=== PATIENT | female | born 1990 | race Caucasian/White ===

== ENCOUNTER 2020-09-18 11:15 | Outpatient (CLI) | payer MEDICAID ==
[2020-09-18 16:41] LABS: MUDS CUTOFF CONCENTRATIONS CUTOFF CONC BELOW:
[2020-09-18 16:48] LABS: BILIRUBIN,URINE NEGATIVE (NEGATIVE); GLUCOSE, URINE (UA) NEGATIVE (NEGATIVE); KETONES,URINE (UA) NEGATIVE (NEGATIVE); LEUKOCYTE ESTERASE, URINE NEGATIVE (NEGATIVE); NITRITE,URINE NEGATIVE (NEGATIVE); OCCULT BLOOD,URINE NEGATIVE (NEGATIVE); PROTEIN,URINE NEGATIVE (NEGATIVE); UROBILINOGEN,URINE 0.2 (NORMAL) E.U./dL (NORMAL)
[2020-09-18 16:49] LABS: CLARITY,URINE CLEAR (CLEAR)
[2020-09-18 17:10] LABS: THC CANNABINOID SCREEN, URINE NEGATIVE (NEGATIVE)
[2020-09-18 17:11] LABS: AMPHETAMINE SCREEN,URINE NEGATIVE (NEGATIVE); BARBITURATE SCREEN,UR NEGATIVE (NEGATIVE); BENZODIAZEPINES SCREEN, URINE NEGATIVE (NEGATIVE); COCAINE SCREEN URINE NEGATIVE (NEGATIVE); METHADONE SCREEN, URINE NEGATIVE (NEGATIVE); METHAMPHETAMINES SCREEN, URINE NEGATIVE (NEGATIVE); OPIATE SCREEN, URINE NEGATIVE (NEGATIVE); OXYCODONE SCREEN, URINE NEGATIVE (NEGATIVE); PROPOXYPHENE SCREEN, URINE NEGATIVE (NEGATIVE); TRICYCLIC ANTIDEPRESSANT,URINE NEGATIVE (NEGATIVE)
[2020-09-18 17:20] LABS: BACTERIA,URINE Rare /HPF (None Seen); RBC,URINE None Seen /HPF (0-5); SQUAMOUS EPITHELIAL CELL,UR RARE Squamous (<= Few); WBC,URINE 0-3 /HPF (0-5)
== END 2020-09-18 23:59 | disposition home or self-care (01) ==
LOC: LAB.R 11:15
PROVIDERS: ATTEND Advanced Practice Midwife
DX: Z32.01 Encounter for pregnancy test, result positive (principal)
CPT/HCPCS: 80306; 81001; 87086

== ENCOUNTER 2020-10-02 13:41 | Outpatient (CLI) | payer MEDICAID ==
--- NOTE | 2020-10-02 18:21 | Ultrasound Report ---
PROCEDURE: OB First Trimester INDICATIONS: positive test OUTSIDE/PRIOR DATING DATA: Last menstrual period (LMP): 08/04/2020. LMP-based estimated date of delivery (DICK): 05/11/2021. First dating scan (date and location): 09/24/2020. Estimated date of delivery (DICK) from first dating scan: 05/08/21. TECHNIQUE: Real-time scanning was performed of the fetus and maternal pelvic organs, with image documentation. COMPARISON: None FINDINGS: Embryo: Single live intrauterine is identified with crown-rump length measuring 2.2 cm cor responding to 8 weeks 6 days. heart tones are identified at 175 beats per minutes. Measurement variability in dating: +/- 4 weeks by LMP, +/- 7 days by mean sac diameter (use before 6 weeks gestation if crown-rump length not able to be measured), +/- 5 days by crown-rump length (6-12 weeks gestation). Maternal organs: Ovaries demonstrate a right corpus luteal cyst measuring 2.2 x 1.3 x 2.0 cm.. IMPRESSION: Single live intrauterine measuring 8 weeks 6 days. Right corpus luteal cyst. Reviewed by: Charlotte Venegas MD on 10/02/2020 5:20 PM [facility]ONNIE Approved by: Charlotte Venegas MD on 10/02/2020 5:20 PM VONNIE Station ID: [id number]
== END 2020-10-02 13:42 | disposition home or self-care (01) ==
LOC: DI 13:41
PROVIDERS: ATTEND Advanced Practice Midwife
DX: O34.81 Maternal care for other abnormalities of pelvic organs, first trimester (principal); N83.11 Corpus luteum cyst of right ovary; Z3A.08 8 weeks gestation of pregnancy; Z32.01 Encounter for pregnancy test, result positive
CPT/HCPCS: 36415; 85025; 86592; 86762; 86787; 86803; 86850; 86900; 86901; 87340; 87389

== ENCOUNTER 2020-10-02 14:33 | Outpatient (CLI) | payer MEDICAID ==
[2020-10-02 14:55] LABS: BASOPHILS % (AUTO) 0.6 %; EOSINOPHILS # (AUTO) 0.1 10^3/uL (0.0-0.7); EOSINOPHILS % (AUTO) 0.9 %; HCT - HEMATOCRIT 38.9 % (37.0-47.0); HGB - HEMOGLOBIN 13.1 g/dL (12.0-16.0); LYMPHOCYTES # (AUTO) 1.9 10^3/uL (1.5-3.5); LYMPHOCYTES % (AUTO) 27.4 %; MEAN CORPUSCULAR HEMOGLOBIN 30.6 pg (27.0-31.0); MEAN CORPUSCULAR HGB CONC 33.7 g/dL (32.0-36.0); MEAN CORPUSCULAR VOLUME 90.9 fL (81.0-99.0); MEAN PLATELET VOLUME 10.5 fL (7.9-10.8); MONOCYTES # (AUTO) 0.6 10^3/uL (0.0-1.0); MONOCYTES % (AUTO) 8.6 %; NEUTROPHILS # (AUTO) 4.3 10^3/uL (1.5-6.6); NEUTROPHILS % (AUTO) 62.2 %; PLT - PLATELET COUNT 247 10^3/uL (130-450); RED BLOOD COUNT 4.28 10^6/uL (4.20-5.40); RED CELL DISTRIBUTION WIDTH 12.5 % (12.0-15.0); WHITE BLOOD COUNT 6.8 x10^3/uL (4.8-10.8)
[2020-10-03 12:06] LABS: HEPATITIS B SURFACE ANTIGEN NON-REACTIVE (NON-REACTIVE)
[2020-10-03 12:20] LABS: HEPATITIS C ANTIBODY NON-REACTIVE (NON-REACTIVE)
[2020-10-03 14:56] LABS: HIV AG/AB 4TH GEN NON-REACTIVE (NON-REACTIVE)
== END 2020-10-02 14:34 | disposition home or self-care (01) ==
LOC: LAB 14:33
PROVIDERS: ATTEND Advanced Practice Midwife
DX: Z32.01 Encounter for pregnancy test, result positive (principal)
CPT/HCPCS: 36415; 85025; 86592; 86762; 86787; 86803; 86850; 86900; 86901; 87340; 87389

== ENCOUNTER 2020-12-25 13:35 | Outpatient (CLI) | payer MEDICAID ==
--- NOTE | 2020-12-25 16:02 | Ultrasound Report ---
PROCEDURE: OB Detailed Eval INDICATIONS: SUPERVISION OF NORMAL OUTSIDE/PRIOR DATING DATA: Last menstrual period (LMP): 08/04/2020. LMP-based estimated date of delivery (DICK): 05/11/2021. First dating scan (date and location): 10/02/2020. Estimated date of delivery (DICK) from first dating scan: 05/08/2021. The below data below was generated using the above DICK of 05/08/2021 TECHNIQUE: Real-time scanning was performed of the fetus, with image documentation and biometric measurements. Endovaginal scanning: Not needed COMPARISON: 10/02/2020 FINDINGS: General: A single living intrauterine gestation is present. Presentation: Variable Placenta: Placental position is posterior, without previa. Amniotic fluid index: 12.4 cm, normal for gestational age. heart rate: 150 beats per minute. Maternal cervical canal: 4.4 cm long; normal length is 2.5 cm or more. biometrics: Biparietal diameter: 4.9 cm, 20 weeks 6 days Head circumference: 18.2 cm, 20 weeks 4 days Abdominal circumference: 15.6 cm, 21 weeks 0 days Femur length: 3.4 cm, 20 weeks 4 days Estimated gestational age from initial scan: 20 weeks 6 days. Composite gestational age from present scan: 20 weeks 5 days Estimated weight and percentile: 3 79 g, 42 percentile Measurement variability in biometric dating: +/- 10 days from 12-20 weeks gestation, +/- 2 weeks from 20-30 weeks gestation, +/- 3 weeks at 30 weeks gestation or later. Anatomic survey: Neuro: Ventricles are normal at less than 10 mm. Cisterna magna is normal at 3-11 mm. Cerebellum i s normal in size and morphology. Nuchal skin fold: Normal at less than 6 mm between 14 and 20 weeks gestational age. Face: Nose and lips, facial profile are normal. Spine: No evidence for spina bifida. Heart: 4-chambered heart is present, with normal ventricular outflow tracts. Diaphragm: Diaphragm is intact. Stomach: Left-sided stomach is present. Kidneys: No hydronephrosis. Normal is less than 5 mm in 2nd trimester, less than 7 mm in 3rd trimester. Cord: 3 vessel cord has orthotopic insertion. Bladder: Normal in size. Extremities: All 4 extremities are visualized. IMPRESSION: Appropriate interval growth, no anomaly seen. The delivery date is projected to be centered on 05/08/2021. Reviewed by: Giovany Massey MD on 12/25/2020 4:00 PM PDT Approved by: Giovany Massey MD on 12/25/2020 4:00 PM PDT Station ID: [id number]
== END 2020-12-25 13:36 | disposition home or self-care (01) ==
LOC: DI 13:35
PROVIDERS: ATTEND Nurse Practitioner Obstetrics & Gynecology
DX: Z34.00 Encounter for supervision of normal first pregnancy, unspecified trimester (principal); Z36.8A Encounter for antenatal screening for other genetic defects
CPT/HCPCS: 36415; 81511

== ENCOUNTER 2020-12-25 15:19 | Outpatient (CLI) | payer MEDICAID ==
[2020-12-26 14:56] LABS: AFP MOM 1.04; AGE RISK DOWN SYNDROME 1 IN 717; CALC'D GESTATIONAL AGE 20.4 weeks; CIGARETTE SMOKER? NOT GIVEN; DONOR AGE: EGG RETRIEVAL NOT GIVEN; DONOR EGG NO; ESTRIOL MOM 0.82; HCG MOM 0.74; HX OF NEURAL TUBE DEFECTS NO; INHIBIN A MOM 0.74; INSULIN DEPEND DIABETIC NO; MATERNAL WEIGHT 152 lbs; MSS DOWN SYNDROME RISK <1 IN 5000; MSS3 TRISOMY 18 RISK <1 IN 5000; NUMBER OF FETUSES 1; PREV PREGNANCY DOWN SYND NO; RISK FOR ONTD 1 IN 3103
== END 2020-12-25 15:20 | disposition home or self-care (01) ==
LOC: LAB 15:19
PROVIDERS: ATTEND Nurse Practitioner Obstetrics & Gynecology
DX: Z36.8A Encounter for antenatal screening for other genetic defects (principal)
CPT/HCPCS: 36415; 81511

== ENCOUNTER 2021-05-07 11:46 | Inpatient (IN) | payer MEDICAID ==
[2021-05-07] MEDS ORDERED: miSOPROStoL 200 MCG TABLET BC PRN (12:03)
[2021-05-07] MEDS ORDERED: TRANEXAMIC ACID IN NACL 1,000 MG/100 ML BAG IV PRN (12:03)
[2021-05-07] MEDS ORDERED: OXYTOCIN 10 UNIT/ML VIAL IM PRN (12:03)
[2021-05-07] MEDS ORDERED: CARBOPROST TROMETHAMINE 250 MCG/ML AMP IM PRN (12:03)
[2021-05-07] MEDS ORDERED: SODIUM CHLORIDE FLUSH 0.9% 10 ML SYRINGE IVP PRN (12:03)
[2021-05-07] MEDS ORDERED: LIDOCAINE-MPF 1% 30 ML VIAL ID PRN (12:03)
[2021-05-07] MEDS ORDERED: METHYLERGONOVINE 0.2 MG/ML VIAL IM PRN (12:03)
--- NOTE | 2021-05-07 12:04 | HISTORY & PHYSICAL EXAMINATION ---
History and Physical - History and Physical HPI: Patient is a 31-year-old G1, P0 at 39 weeks 3 days gestation who was managed by Jody Corona at the [facility]. She presented in labor and progressed to complete. She pushed for approximately 4 hours before we are asked to accept her as her contractions are petering out, patient was tired, and is not having adequate pain control. Good movement. No AVELAR/BV or RUQP. No vaginal bleeding. Denies nausea and vomiting. Denies urinary urgency or dysuria. All other symptoms reviewed and were negative except per HPI. PMH Anxiety PSH Internasal surgery OB History SH Denies tobacco, alcohol, drugs Family History Mother: Ovarian cancer, diabetes, arthritis Father: Alcoholism Maternal grandmother: Ovarian cancer Maternal grandfather: Coronary artery disease, CVA, Alzheimer's Paternal grandmother: Lung cancer Allergies No known drug allergies Medications vitamins Physical exam: Temp Pulse Resp BP 98.1 F 78 18 123/65 General: Alert, oriented, actively laboring Head: Normal cephalic atraumatic Eyes: PERRLA, extraocular motions intact. Respiratory: Normal rate of respiration. No accessory muscle use, normal respiratory effort. Cardiovascular: Regular rate and rhythm Abdomen: Gravid, nontender, nondistended Extremities: Normal range of motion Neuro: Oriented x3. Normal movements Psych: Appropriate mood and affect. Normal judgment and insight SVE: 10/100/+1 FHT: 120 beats minute baseline, moderate variability, accelerations present, no decelerations. [place]: 2 to 3 minutes Plan 31-year-old G1, P0 at 39 weeks 3 days gestation in active labor with prolonged second stage. 1. Term labor -Will admit for prolonged second stage. Will get adequate pain control, assess for oxytocin, and attempted vacuum-assisted vaginal delivery. Patient was counseled on the risks and benefits of vacuum-assisted vaginal delivery versus section. Discussed there is a likelihood that we may end up with section anyway, but once patient has good pain control, will attempt. 2. Prolonged second stage of labor 3. Anxiety
[2021-05-07 12:34] LABS: BASOPHILS # (AUTO) 0.1 10^3/uL (0.0-0.1); BASOPHILS % (AUTO) 0.3 %; EOSINOPHILS % (AUTO) 0.1 %; HCT - HEMATOCRIT 33.3 % (37.0-47.0); HGB - HEMOGLOBIN 11.6 g/dL (12.0-16.0); LYMPHOCYTES # (AUTO) 1.2 10^3/uL (1.5-3.5); LYMPHOCYTES % (AUTO) 5.1 %; MEAN CORPUSCULAR HEMOGLOBIN 30.4 pg (27.0-31.0); MEAN CORPUSCULAR HGB CONC 34.8 g/dL (32.0-36.0); MEAN CORPUSCULAR VOLUME 87.2 fL (81.0-99.0); MEAN PLATELET VOLUME 11.1 fL (7.9-10.8); MONOCYTES # (AUTO) 1.1 10^3/uL (0.0-1.0); MONOCYTES % (AUTO) 4.7 %; NEUTROPHILS % (AUTO) 88.8 %; PLT - PLATELET COUNT 239 10^3/uL (130-450); RED BLOOD COUNT 3.82 10^6/uL (4.20-5.40); RED CELL DISTRIBUTION WIDTH 13.3 % (12.0-15.0); WHITE BLOOD COUNT 23.6 x10^3/uL (4.8-10.8)
[2021-05-07 12:37] LABS: SLIDE REVIEW? Indicated
[2021-05-07] MEDS ORDERED: LACTATED RINGERS 1,000 ML IV SCH (13:00)
[2021-05-07] MEDS ORDERED: ROPIVACAINE 0.2% 200 MG/100 ML BAG EP ONE (13:11)
[2021-05-07] MEDS ORDERED: fentaNYL 100 MCG/2 ML VIAL ONE (13:11)
[2021-05-07] MEDS ORDERED: BUPIVACAINE 0.25% PF 10 ML VIAL ONE (13:11)
--- NOTE | 2021-05-07 13:31 | ANESTHESIA ---
Pre-Anesthesia VS, & Labs - Diagnosis active labor - Procedure labor epidural - Is Patient ?: Yes - Lab Results Current Lab Results: Laboratory Tests 05/07/21 12:23: Blood Type O POSITIVE, Antibody Screen NEGATIVE 05/07/21 12:23: WBC 23.6 H, RBC 3.82 L, Hgb 11.6 L, Hct 33.3 L, MCV 87.2, MCH 30.4, MCHC 34.8, RDW 13.3, Plt Count 239, MPV 11.1 H, Manual Slide Review Indicated Lab results reviewed: Yes Fish Bones: 05/07/21 12:23 Home Medications and Allergies Active Medications Carboprost Tromethamine (Carboprost Tromethamine 250 Mcg/Ml Amp) 250 mcg IM Q15M PRN PRN Reason: Step 4: Hemorrhage protocol Stop: 05/12/21 12:03 Oxytocin/Sodium Chloride (Pitocin/Sodium Chloride) 500 mls @ 999 mls/hr IV PRN PRN; Protocol PRN Reason: POST- HEMORR PREVENTION Stop: 05/12/21 12:03 Tranexamic Acid (Tranexamic 1,000 Mg/100ml-Nacl) 1,000 mg in 100 mls @ 600 mls/hr IV .ONCE PRN PRN Reason: EBL >1200mL and within 3hr Stop: 05/12/21 12:03 Lactated Ringer's (Lr) 1,000 mls @ 150 mls/hr IV .Q6H40M TIM Lidocaine HCl (Lidocaine-Mpf 1% 30 Ml Vial) 30 ml ID .ONCE PRN PRN Reason: PERINEAL REPAIR Stop: 05/12/21 12:03 Methylergonovine Maleate (Methylergonovine 0.2 Mg/Ml Vial) 0.2 mg IM .ONCE PRN PRN Reason: Step 2: Hemorrhage protocol Stop: 05/12/21 12:03 Misoprostol (Misoprostol 200 Mcg Tablet) 800 mcg BC .ONCE PRN PRN Reason: Step 3: Hemorrhage protocol Stop: 05/12/21 12:03 Oxytocin (Oxytocin 10 Unit/Ml Vial) 10 unit IM .ONCE PRN PRN Reason: Step one: If no IV access Stop: 05/12/21 12:03 Sodium Chloride (Sodium Chloride Flush 0.9% 10 Ml Syringe) 10 ml IVP PRN PRN PRN Reason: NEEDED PER PROVIDER ORDERS Sodium Chloride (Sodium Chloride Flush 0.9% 10 Ml Syringe) 10 ml IVP 0100,0900,1700 TIM Anes History & Medical History - Anesthetic History Anesthesia Complications: reports: No previous complications Family history of Anesthesia Complications: Denies Family history of Malignant Hyperthermia: Denies - Medical History Cardiovascular: reports: None Pulmonary: reports: None Gastrointestinal: reports: None Urinary: reports: None Exam General: Alert, Oriented x3, Cooperative, No acute distress Dental: WNL Mouth Openin Fingerbreadth Neck Mobility: Normal Mallampati classification: II Respiratory: Lungs clear, Normal breath sounds, No respiratory distress, No accessory muscle use Cardiovascular: Regular rate, Normal S1, Normal S2, No murmurs Plan Anesthesia Type: Epidural Consent for Procedure(s) Verified and Reviewed: Yes Code Status: Attempt Resuscitation ASA classification: 2-Mild systemic disease Is this case an emergency?: No
[2021-05-07] MEDS ORDERED: NALOXONE 0.4 MG/ML VIAL IVP PRN (13:32)
[2021-05-07] MEDS ORDERED: ONDANSETRON 4 MG/2 ML VIAL IVP PRN (13:32)
[2021-05-07] MEDS ORDERED: ePHEDrine 50 MG/ML VIAL IVP PRN (13:32)
[2021-05-07] MEDS ORDERED: NALBUPHINE 10 MG/ML AMP IVP PRN (13:32)
[2021-05-07] MEDS ORDERED: ROPIVACAINE 0.2% 200 MG/100 ML BAG EP PRN (13:32)
[2021-05-07] MEDS ORDERED: diphenhydrAMINE INJ 50 MG/ML VIAL IVP PRN (13:32)
[2021-05-07] MEDS ORDERED: METOCLOPRAMIDE 10 MG/2 ML VIAL IVP PRN (13:32)
[2021-05-07 14:06] LABS: PLATELET ESTIMATE, MANUAL NORMAL (130-450,000) (NORMAL); PLATELET MORPHOLOGY NORMAL APPEARANCE (NORMAL); RBC MORPHOLOGY (MULTIPLE) NORMAL APPEARANCE (NORMAL)
[2021-05-07 14:07] LABS: DIFFERENTIAL COMMENT MANUAL=AUTO DIFF
[2021-05-07] MEDS: OXYTOCIN/SODIUM CHLORIDE 500 ML IV PRN ×2 (15:57→16:35)
[2021-05-07] MEDS ORDERED: SIMETHICONE CHEW 80 MG TABLET PO PRN (16:06)
--- NOTE | 2021-05-07 16:10 | DELIVERY NOTE ---
Delivery Note - Labor Labor: positive: Spontaneous - Delivery Method Delivery Method: positive: Vacuum assist - Presentation Presentation: positive: FRANCESCO - right occiput anterior - Nuchal Cord Nuchal Cord: positive: None - Anesthetic Anesthetic Type: - Amniotic Fluid Description Amniotic Fluid Description: positive: Clear - Vacuum Use Indication for Vacuum Use: positive: Prolonged 2nd stage Type of Vacuum Cup: positive: Cup: Rigid Vacuum Extraction: positive: Successful Number of pop-offs: 0 - Episiotomy Type Episiotomy Type: positive: None - Laceration Laceration: positive: 1st degree (Hemostatic with pressure), Labial (Hemostatic with pressure.) - Delivery Outcome Delivery Outcome: positive: Livebirth - : positive: Placed in direct skin contact with mother, Suctioned, [place] used [place] sex: positive: Male - Cord Cord: positive: 3 vessels - Placenta Placenta: positive: Intact - Estimated Blood Loss Estimated Blood Loss (in cc): 400 - Post Delivery Events Post Delivery Events: positive: Shoulder dystocia (45 second shoulder dystocia with left shoulder anterior. Resolved with Bryant position.) - Delivery Comments (Free Text/Narrative) Delivery Comments (Free Text/Narrative): Preoperative Diagnoses 31-year-old 39 weeks gestation Spontaneous term labor Prolonged second stage Postoperative Diagnoses Same Status post vacuum-assisted vaginal delivery Delivery Summary: Patient presented as a transfer from the [facility] due to prolonged second stage. She presented to [facility] and received an epidural for pain control. Once pain is under control, mother felt she had increased energy and attempted pushing spontaneously for approximately 1 hour. At that time, without , we discussed vacuum-assisted vaginal delivery Patient was placed in the dorsal lithotomy position in the bed was broken down. The bladder was again drained. After confirming FRANCESCO position and +2 station, a Kiwi suction device was placed at the flexion point, approximately 3 cm from the posterior fontanelle. With several contractions, the device suction was initiated and gentle traction was performed to assist maternal pushing efforts. After the bony skull was out of the introitus, the vaccuum was removed. With several more pushes, the head was delivered, but the anterior, left, shoulder did not immediately deliver. After approximately 45 seconds of gentle downward traction's and subsequent Bryant positioning, the anterior should delivered followed by the posterior shoulder then the remainder of the infant's body. A male was delivered with APGARS of 8 at 1 minute and 9 at 5 minutes. The was placed on its mother's chest. One minute of delayed clamping was performed. After the cord finished pulsating, the umbilical cord was clamped times two and cut and the was placed on maternal chest. Dr. Wall was in the room and evaluated the . On my brief assessment, the was moving both arms spontaneously. The placenta delivered intact with three vessel cord. Placenta was not sent to pathology. Thirty units of Pitocin were added to the IV fluid and allowed to run freely. Uterine massage was performed until uterus was deemed firm. Upon inspection of the perineum, a first-degree midline laceration and right and left labial lacerations were noted, however these were small and hemostatic after pressure was applied. Uterus again massaged and found to be firm. Needle and sponge counts were correct. Patient was stable and allowed to recover in L&D room. Infant was stable and remained in room with mother.
[2021-05-07] MEDS ORDERED: SODIUM CHLORIDE FLUSH 0.9% 10 ML SYRINGE IVP SCH (17:00)
[2021-05-07] MEDS: IBUPROFEN 600 MG TABLET PO SCH ×2 (17:37→23:40)
[2021-05-07] MEDS: ACETAMINOPHEN 500 MG TABLET PO SCH (17:37)
[2021-05-07] MEDS: LACTATED RINGERS 1,000 ML IV SCH (17:38)
[2021-05-07] MEDS: DOCUSATE SODIUM 100 MG CAPSULE PO PRN (21:14)
[2021-05-08] MEDS: ACETAMINOPHEN 500 MG TABLET PO SCH ×3 (01:28→15:55)
[2021-05-08] MEDS: IBUPROFEN 600 MG TABLET PO SCH ×3 (07:55→15:55)
[2021-05-08] MEDS: LACTATED RINGERS 1,000 ML IV SCH ×2 (07:56→15:55)
[2021-05-08] MEDS: DOCUSATE SODIUM 100 MG CAPSULE PO PRN (08:34)
--- NOTE | 2021-05-08 10:38 | PROVIDER PROGRESS NOTE ---
Subjective - Prog Note Date Prog Note Date: 05/08/21 Prog Note Time: 10:37 - Subjective Subjective: Subjective Patient reports she is doing well. Lochia appropriate. Denies heavy bleeding. Ambulating. Pelvic and abdominal pain well-controlled. Tolerating oral intake. Diet: Regular. Voiding without difficulty. Passing flatus. Denies BM. Patient is bonding with baby Breast feeding going well. Denies feeling lightheaded, dizzy or excessively fatigued. Objective General: Alert, oriented, no apparent distress. Cardiovascular: Regular rate. Regular rhythm. No murmur. Lungs: Clear to auscultation. Good air movement. No crackles or wheezes Abdomen: Uterus firm. Below umbilicus. Normal active bowel sounds. No guarding or rebound. Extremities: Normal pedal pulses. No edema. No cords. Assessment and Plan day 1. -Routine care -Anticipate discharge today Prolonged second stage -Patient had a prolonged second stage with vacuum-assisted vaginal delivery. Had a 45-second shoulder dystocia that resolved with Bryant positioning. Discussed this with patient including the risk of recurrence and future . Baby is doing well with no deficits. Objective - Vital Signs/Intake & Output Vital Signs: Vital Signs x48h Temp Pulse Resp BP BP Pulse Ox 05/08/21 08:36 97.9 F 81 16 105/64 100 05/08/21 03:34 98.4 F 72 18 120/78 99 Intake & Output: Intake & Output 05/05/21 05/06/21 05/07/21 05/08/21 23:59 23:59 23:59 23:59 Intake Total 1000 Output Total 1050 1 Balance -50 -1 - Lab Results Fish Bones: 05/07/21 12:23 Other Labs: Lab Results x24hrs 05/07/21 05/07/21 Range/Units 12:23 12:23 WBC 23.6 H (4.8-10.8) x10^3/uL RBC 3.82 L (4.20-5.40) 10^6/uL Hgb 11.6 L (12.0-16.0) g/dL Hct 33.3 L (37.0-47.0) % MCV 87.2 (81.0-99.0) fL MCH 30.4 (27.0-31.0) pg MCHC 34.8 (32.0-36.0) g/dL RDW 13.3 (12.0-15.0) % Plt Count 239 (130-450) 10^3/uL MPV 11.1 H (7.9-10.8) fL Neut # (Auto) 21.0 H (1.5-6.6) 10^3/uL Lymph # (Auto) 1.2 L (1.5-3.5) 10^3/uL Mifflin # (Auto) 1.1 H (0.0-1.0) 10^3/uL Eos # (Auto) 0.0 (0.0-0.7) 10^3/uL Baso # (Auto) 0.1 (0.0-0.1) 10^3/uL Absolute Nucleated RBC 0.00 x10^3/uL Band Neuts % (Manual) Not Reportable Abnorm Lymph % (Manual) Not Reportable Nucleated RBC % 0.0 /100WBC Neutrophils # (Manual) Not Reportable Lymphocytes # (Manual) Not Reportable Monocytes # (Manual) Not Reportable Eosinophils # (Manual) Not Reportable Basophils # (Manual) Not Reportable Differential Comment MANUAL=AUTO DIFF Manual Slide Review Indicated Platelet Estimate NORMAL (130-450,000) (NORMAL) Platelet Morphology NORMAL APPEARANCE (NORMAL) RBC Morph Micro Appear NORMAL APPEARANCE (NORMAL) Blood Type O POSITIVE Antibody Screen NEGATIVE
--- NOTE | 2021-05-08 10:41 | Discharge Plan ---
Discharge Plan Problem Reviewed?: Yes Disposition: Home, Self Care Condition: Good Diet: Regular Shower Restrictions: No Driving Restrictions: No Instruction Topics: Vaginal After Additional Instructions or Follow Up instructions: Nothing the vagina for 6 weeks including tampons, douching, intercourse. Call [facility] or go to the emergency room for bleeding greater than 1 soaking 2 pads an hour for 2 hours. Call or go to emergency room for severe pain not relieved by ibuprofen and Tylenol. No Smoking: If you smoke, Please STOP! Call for help. Follow-up with: Wally Mckeon MD [Provider Admit Priv/Credential] -
--- NOTE | 2021-05-08 10:44 | DISCHARGE SUMMARY ---
Discharge Summary Admit Date: 05/07/21 Discharge Date: 05/08/21 Discharging Provider: Wally Mckeon MD Code Status: Attempt Resuscitation Condition at Discharge: Good Discharge Disposition: 01 Home, Self Care - DIAGNOSES Admission Diagnoses: Term Labor Prolonged second stage of labor Discharge Diagnoses with Status of Each Condition: Status post vacuum assisted vaginal delivery Shoulder dystocia - HPI History of Present Illness: Patient doing well this morning. No acute events. Desires to go home. - HOSPITAL COURSE Hospital Course: Patient is a 31-year-old G1, P0 admitted at 39 weeks 3 days gestation for prolonged second stage of labor while delivering at [facility]. She presented to labor and delivery and had an epidural placed. She did like to push for 1 hour followed by a vacuum-assisted vaginal delivery. He has subsequent shoulder dystocia that resolved after 45 seconds and fetus showed no deficits. Patient and her partner were counseled on the risk of recurrence of future shoulder dystocia. Patient is doing well and breast-feeding. She desired to go home and is discharged on day 1. - ALLERGIES Allergies/Adverse Reactions: Allergies Allergy/AdvReac Type Severity Reaction Status Date / Time No Known Drug Allergies Allergy Verified 05/07/21 17:33 - MEDICATIONS Home Medications: Ambulatory Orders Medication Instructions Recorded Confirmed Acetaminophen [Acetaminophen Extra 1,000 mg PO Q8H PRN #60 tablet 05/08/21 Strength] Docusate Sodium 100Mg Capsule 100 - 200 mg PO BID PRN #60 cap 05/08/21 [Colace 100Mg Capsule] Ibuprofen [Motrin] 600 mg PO Q6H PRN #30 tab 05/08/21 - LABS Result Diagrams: 05/07/21 12:23 - FOLLOW UP Follow Up: Wally Mckeon MD at [facility]. - TIME SPENT Time Spent in Discharge (Minutes): 20
[2021-05-08 16:01] VITALS: BP 138/81
== END 2021-05-08 17:10 | disposition home or self-care (01) | DRG 807 ==
LOC: WFO 11:46 → FBP 11:47 → WFO 12:02 → FBP 12:03
PROVIDERS: ADMIT Obstetrics & Gynecology; ATTEND Obstetrics & Gynecology
PROC: 10D07Z6 Extraction of Products of Conception, Vacuum, Via Natural or Artificial Opening (ICD-10-PCS; principal; 2021-05-07)
DX: O63.1 Prolonged second stage (of labor) (principal); Z37.0 Single live birth; O66.0 Obstructed labor due to shoulder dystocia; Z3A.39 39 weeks gestation of pregnancy; O70.0 First degree perineal laceration during delivery
CPT/HCPCS: 36415; 85025; 86850; 86900; 86901; A9270; J7120

== ENCOUNTER 2023-02-12 07:56 | Outpatient (CLI) | payer MEDICAID ==
[2023-02-12 14:46] LABS: BASOPHILS # (AUTO) 0.1 10^3/uL (0.0-0.1); BASOPHILS % (AUTO) 0.8 %; EOSINOPHILS # (AUTO) 0.1 10^3/uL (0.0-0.7); EOSINOPHILS % (AUTO) 1.1 %; HCT - HEMATOCRIT 43.7 % (37.0-47.0); LYMPHOCYTES # (AUTO) 2.3 10^3/uL (1.5-3.5); MEAN CORPUSCULAR HEMOGLOBIN 29.7 pg (27.0-31.0); MEAN CORPUSCULAR VOLUME 92.6 fL (81.0-99.0); MEAN PLATELET VOLUME 11.4 fL (7.9-10.8); MONOCYTES # (AUTO) 0.7 10^3/uL (0.0-1.0); MONOCYTES % (AUTO) 10.1 %; NEUTROPHILS # (AUTO) 3.5 10^3/uL (1.5-6.6); NEUTROPHILS % (AUTO) 52.7 %; PLT - PLATELET COUNT 249 10^3/uL (130-450); RED BLOOD COUNT 4.72 10^6/uL (4.20-5.40); WHITE BLOOD COUNT 6.6 x10^3/uL (4.8-10.8)
[2023-02-12 15:20] LABS: THYROID STIMULATING HORMONE 1.12 uIU/mL (0.34-5.60)
[2023-02-12 15:24] LABS: FERRITIN 29.8 ng/mL (11.0-306.8)
[2023-02-12 15:27] LABS: % IRON SATURATION 32 % (20-50); ALBUMIN 4.7 g/dL (3.2-5.5); ALBUMIN/GLOBULIN RATIO 1.6 (1.0-2.2); ALKALINE PHOSPHATASE 56 IU/L (42-121); ALT ALANINE AMINOTRANSFERASE 15 IU/L (10-60); AST ASPARTATE AMINOTRANSFERASE 17 IU/L (10-42); BILIRUBIN,TOTAL 0.6 mg/dL (0.2-1.0); BUN - BLOOD UREA NITROGEN 12 mg/dL (6-20); CALCIUM 9.4 mg/dL (8.5-10.3); CARBON DIOXIDE - CO2 27 mmol/L (21-32); CHLORIDE 103 mmol/L (101-111); CHOL/HDL RATIO 2.3 (<4.4); CHOLESTEROL 151 mg/dL; CREATININE 0.6 mg/dL (0.6-1.3); GFR - MDRD 116 (>89); GLUCOSE 94 mg/dL (74-104); HDL CHOLESTEROL 65 mg/dL; IRON 106 ug/dL (50-212); LDL CHOLESTEROL,CALCULATED 76 mg/dL; LDL/HDL RATIO 1.2 (<4.4); POTASSIUM 3.8 mmol/L (3.5-4.5); SODIUM 136 mmol/L (135-145); TOTAL IRON BINDING CAPACITY 329 ug/dL (250-450); TOTAL PROTEIN 7.6 g/dL (6.4-8.9); TRANSFERRIN 235 mg/dL (203-362); TRIGLYCERIDES 52 mg/dL (48-352); VLDL CHOLESTEROL 10 mg/dL
== END 2023-02-12 07:57 | disposition home or self-care (01) ==
LOC: LAB.S 07:56
PROVIDERS: ATTEND General Practice
DX: R53.83 Other fatigue (principal); N92.0 Excessive and frequent menstruation with regular cycle; Z13.220 Encounter for screening for lipoid disorders; Z13.0 Encounter for screening for diseases of the blood and blood-forming organs and certain disorders involving the immune mechanism
CPT/HCPCS: 36415; 80053; 80061; 82728; 83540; 83721; 84439; 84443; 84466; 85025

== ENCOUNTER 2023-06-26 08:00 | Outpatient (CLI) | payer MEDICAID ==
--- NOTE | 2023-06-26 10:48 | XRAY Report ---
PROCEDURE: Lumbar Spine 2-3V INDICATIONS: LUMBAR BACK PAIN TECHNIQUE: 3 view(s) of the lumbar spine were acquired. COMPARISON: None. FINDINGS: Bones: Vertebral body height and alignment is maintained. No suspicious bony lesions. Soft tissues: Overlying bowel gas pattern is normal. No suspicious soft tissue calcifications. IMPRESSION: Unremarkable lumbar spine radiographs Reviewed by: Chapincito Landrum MD on 06/26/2023 9:47 AM [facility] Approved by: Chapincito Landrum MD on 06/26/2023 9:47 AM [facility] Station ID: [id number]
== END 2023-06-26 23:59 | disposition home or self-care (01) ==
LOC: DI.S 08:00
PROVIDERS: ATTEND Physician Assistant Medical
DX: M54.50 Low back pain, unspecified (principal)

== ENCOUNTER 2024-01-21 08:00 | Outpatient (CLI) | payer MEDICAID ==
[2024-01-21 23:22] LABS: CHLAMYDIA TRACHOMATIS DNA NEGATIVE (NEGATIVE); NEISSERIA GONORRHOEAE DNA NEGATIVE (NEGATIVE); TRICHOMONAS VAGINALIS DNA NEGATIVE (NEGATIVE)
== END 2024-01-21 23:59 | disposition home or self-care (01) ==
LOC: LAB.F 08:00
PROVIDERS: ATTEND Registered Nurse
DX: Z11.3 Encounter for screening for infections with a predominantly sexual mode of transmission (principal)
CPT/HCPCS: 87491; 87591; 87661